=== PATIENT | male | born 1975 | race Caucasian/White ===

== ENCOUNTER 2017-06-22 10:38 | Emergency (ER) | payer OTHER ==
[2017-06-22 10:41] VITALS: BMI 25.8
[2017-06-22 10:44] VITALS: TEMP 98.1; O2SAT 96
--- NOTE | 2017-06-22 11:08 | ED PDOC ---
Arrival/HPI - General Historian: Patient - History of Present Illness Time/Duration: < week Symptom Onset: Gradual Symptom Course: Improving Severity Level: Mild <Juanjo Pedersen - Last Filed: 06/22/17 12:39> <Hattie Colbert - Last Filed: 06/22/17 14:08> - General Chief Complaint: Cough, Cold, Congestion Time Seen by Provider: 06/22/17 11:08 - History of Present Illness Narrative History of Present Illness (Text): 06/22/17 11:25 41yo M with PMHx including HTN (controlled with diet) here for evaluation of chest congestion, cough and cold. Patient states that he has had a cough ( productive white phlegm), congestion, runny nose, subjective fevers for the past 5 days. State that he had to miss work for the past two days. He is feeling a bit better today than he has, but wanted to come in to get evaluated. He also reports a mild sore throat. Able to tolerate PO. Does report that his kids have similar symptoms. Denies any CP/SOB. No Headaches. No N/V/D. No Abd pain. No urinary changes. No Bowel habit changes. PMHx: HTN (diet controlled) PSHx: Right ankle fx ORIF Social Hx: Current 1 cigar per month smoker. Current occasional/social ETOH use. Denies any illicit drugs. 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) Allergy: Peanut (Juanjo Pedersen) Past Medical History - Provider Review Nursing Documentation Reviewed: Yes - Infectious Disease Hx of Infectious Diseases: None - Psychiatric Hx Substance Use: No - Surgical History Other/Comment: R leg surgery with pin and plate placement around 2010 - Anesthesia Hx Anesthesia: Yes Hx Anesthesia Reactions: No <Juanjo Pedersen - Last Filed: 06/22/17 12:39> Family/Social History - Physician Review Nursing Documentation Reviewed: Yes Family/Social History: No Known Family HX Smoking Status: Current 1 cigar per month Hx Alcohol Use: Yes Frequency of alcohol use: Socially Hx Substance Use: No <Juanjo Pedersen - Last Filed: 06/22/17 12:39> Allergies/Home Meds <Juanjo Pedersen - Last Filed: 06/22/17 12:39> <Hattie Colbert - Last Filed: 06/22/17 14:08> Allergies/Adverse Reactions: Allergies peanut Allergy (Verified 06/22/17 10:41) ANAPHYLAXIS Home Medications: Home Meds Medication Instructions Recorded Confirmed No Known Home Med 06/22/17 06/22/17 Review of Systems - Review of Systems Constitutional: Fatigue, Fevers Eyes: Normal ENT: Sore Throat, Rhinorrhea. absent: Hearing Changes Respiratory: Cough, Sputum. absent: SOB, Wheezing Cardiovascular: absent: Chest Pain, Palpitations, Edema, Calf Pain, LORENZANA, Syncope Gastrointestinal: absent: Abdominal Pain, Diarrhea, Nausea, Vomiting Genitourinary Male: absent: Dysuria, Frequency Musculoskeletal: absent: Back Pain Neurological: absent: Headache, Dizziness <Juanjo Pedersen - Last Filed: 06/22/17 12:39> Physical Exam Vital Signs Reviewed: Yes Temperature: Afebrile Blood Pressure: Normal Pulse: Regular Respiratory Rate: Normal Appearance: Positive for: Well-Appearing, Comfortable Pain Distress: None Mental Status: Positive for: Alert and Oriented X 3 - Systems Exam Head: Present: Atraumatic, Normocephalic Extroacular Muscles: Present: EOMI Ears: Present: Normal, NORMAL TM, Normal Canal. No: Erythema, TM Bulging, Fluid Mouth: Present: Moist Mucous Membranes, Normal Tounge, Normal Teeth Pharnyx: Present: ERYTHEMA. No: EXUDATE, TONSILS ENLARGED, Peritonsilar Swelling, Uvular Deviation, Muffled/Hoarse Voice, Strider (mild right sided erythema), Soft Palate/Uvular Edema Nose (Internal): Present: Normal Inspection Neck: Present: Normal Range of Motion Respiratory/Chest: Present: Clear to Auscultation, Good Air Exchange. No: Respiratory Distress, Accessory Muscle Use, Wheezes, Decreased Breath Sounds Cardiovascular: Present: Regular Rate and Rhythm, Normal S1, S2. No: Murmurs Abdomen: No: Tenderness, Distention, Peritoneal Signs, Rebound, Guarding Upper Extremity: Present: Normal Inspection. No: Cyanosis, Edema Lower Extremity: Present: Normal Inspection, NORMAL PULSES. No: Edema, CALF TENDERNESS, Corinna's Sign Neurological: Present: GCS=15 Skin: Present: Warm Psychiatric: Present: Alert, Oriented x 3 <Juanjo Pedersen - Last Filed: 06/22/17 12:39> Medical Decision Making <Juanjo Pedersen - Last Filed: 06/22/17 12:39> <Hattie Colbert - Last Filed: 06/22/17 14:08> ED Course and Treatment: 06/22/17 11:37 41yo M with Pharyngitis and Upper Respiratory Illness - CXR - No acute findings - Discussed findings with patient. Patient to stay well hydrated. He agrees to follow up with his PMD. All questions and concerns addressed. Patient understands and agrees with plan. (Juanjo Pedersen) 06/22/17 11:52 In agreement with resident note. Patient was seen and evaluated with resident, came up with plan and treatment together. Patient presented to emergency department for URI symptoms. CXR negative. Patient's symptoms are actually much improved than a few days ago as he reports. Likely resolving viral URI. pt stable for discharge. Advised to present for emergency department fro new/worsening symptoms and follow up with PMD within few days. (Hattie Colbert) - RAD Interpretation Radiology Orders: 06/22/17 11:24 CHEST TWO VIEWS (PA/LAT) [RAD] Stat - PA / VP HOME HEALTH / Resident Statement AZUL has reviewed & agrees with the documentation as recorded. / has examined the patient and agrees with the treatment plan. <Juanjo Pedersen - Last Filed: 06/22/17 12:39> - PA / VP HOME HEALTH / Resident Statement AZUL has reviewed & agrees with the documentation as recorded. / has examined the patient and agrees with the treatment plan. <Hattie Colbert - Last Filed: 06/22/17 14:08> Disposition/Present on Arrival - Present on Arrival Any Indicators Present on Arrival: No History of DVT/PE: No History of Uncontrolled Diabetes: No Urinary Catheter: No History of Decub. Ulcer: No History Surgical Site Infection Following: None - Disposition Have Diagnosis and Disposition been Completed?: Yes Disposition Time: 11:40 Patient Plan: Discharge <Juanjo Pedersen - Last Filed: 06/22/17 12:39> <Hattie Colbert - Last Filed: 06/22/17 14:08> - Disposition Diagnosis: Upper respiratory infection, Viral illness Disposition: HOME/ ROUTINE Condition: GOOD Discharge Instructions (ExitCare): Upper Respiratory Infection (ED), Viral Syndrome (ED) Additional Instructions: 1. Follow up with your Primary Care Physician within three days. 2. Rest and stay well hydrated. 3. Return to the ER with any concerning symptoms Referrals: PCP,NO [Primary Care Provider] - Follow up with primary Forms: [employer] ([place]), WORK NOTE
[2017-06-22 11:38] VITALS: BP 127/79; PULSE 68; RESP 18
--- NOTE | 2017-06-22 12:19 | RAD ---
HISTORY: congestion COMPARISON: No prior. TECHNIQUE: Chest PA and lateral FINDINGS: LUNGS: No active pulmonary disease. PLEURA: No significant pleural effusion identified. No pneumothorax apparent. CARDIOVASCULAR: Normal. OSSEOUS STRUCTURES: No significant abnormalities. VISUALIZED UPPER ABDOMEN: Normal. OTHER FINDINGS: None. IMPRESSION: No active disease.
== END 2017-06-22 11:50 | disposition home or self-care (01) ==
LOC: ED 10:38
DX: J06.9 Acute upper respiratory infection, unspecified (principal); F17.210 Nicotine dependence, cigarettes, uncomplicated

== ENCOUNTER 2018-03-04 06:36 | Emergency (ER) | payer SELFPAY ==
[2018-03-04 06:48] VITALS: BMI 27.3
[2018-03-04 06:55] VITALS: BP 155/90; PULSE 108; RESP 16; TEMP 100.3; O2SAT 96
== END 2018-03-04 08:13 | disposition left against medical advice (07) ==
LOC: ED 06:36
DX: Z02.89 Encounter for other administrative examinations (principal); J11.1 Influenza due to unidentified influenza virus with other respiratory manifestations